=== PATIENT | female | born 1985 | race American Indian/Alaskan Native ===

== ENCOUNTER 2017-03-14 14:07 | Emergency (ER) | payer MEDICAID ==
[2017-03-14 14:50] LABS: Basophils % (Auto) 0.3 % (0.0-1.8); Eosinophils % (Auto) 1.5 % (0.0-4.3); Hematocrit 34.8 % (30.3-42.9); Hemoglobin 11.4 gm/dl (10.1-14.3); Mean Corpuscular HGB Conc 33 % (30-34); Mean Corpuscular Hemoglobin 26 pg (28-32); Mean Corpuscular Volume 81 fl (79-97); Platelet Count 321 K/mm3 (140-440); Red Cell Distribution Width 14.4 % (13.2-15.2); White Blood Count 9.7 K/mm3 (4.5-11.0)
[2017-03-14 15:11] LABS: Anion Gap 16 mmol/L; BUN/Creatinine Ratio 13; Blood Urea Nitrogen 8 mg/dL (7-17); Calcium 8.8 mg/dL (8.4-10.2); Carbon Dioxide 24 mmol/L (22-30); Chloride 100.8 mmol/L (98-107); Glucose 93 mg/dL (65-100); Potassium 3.4 mmol/L (3.6-5.0); Sodium 137 mmol/L (137-145)
--- NOTE | 2017-03-14 20:43 | Emergency Department Report ---
ED Chest Pain HPI - General Chief Complaint: Chest Pain Stated Complaint: CHEST AND BACK PAIN Time Seen by Provider: 03/14/17 20:13 Source: patient Mode of arrival: Ambulatory Limitations: No Limitations - History of Present Illness Initial Comments: This is a 31-year-old [place] female presents to the emergency department, driving himself in to be seen, with complaint of some midsternal chest pain that has been going on since about 8 AM this morning. It is associated with some shortness of breath and some nausea with one episode of vomiting this morning. She has not taken anything for her symptoms prior presentation. There is no obvious aggravating or alleviating factors. She does not have a primary care physician. She denies any tobacco, illicit drug or alcohol use or abuse. She denies any past medical history. No recent travel, immobility, or sick contacts at home. She denies any known early cardiac disease or events within her nuclear family. Severity scale (0 -10): 7 - Related Data Allergies Allergy/AdvReac Type Severity Reaction Status Date / Time No Known Allergies Allergy Unverified 03/14/17 14:14 Heart Score - HEART Score History: Slightly suspicious EKG: Normal Age: < 45 Risk factors: No known risk factors Troponin: < normal limit HEART Score: 0 - Critical Actions Critical Actions: 0-3 pts:0.9-1.7%risk of adverse cardiac event.Candidate for discharge ED Review of Systems ROS: Stated complaint: CHEST AND BACK PAIN Other details as noted in HPI Comment: All other systems reviewed and negative Constitutional: denies: chills, fever Eyes: denies: eye pain, eye discharge, vision change ENT: denies: ear pain, throat pain Respiratory: shortness of breath. denies: cough Cardiovascular: chest pain. denies: palpitations Gastrointestinal: nausea, vomiting. denies: abdominal pain Genitourinary: denies: urgency, dysuria, discharge Musculoskeletal: denies: back pain, joint swelling, arthralgia Skin: denies: rash, lesions Neurological: denies: headache, weakness, paresthesias ED Past Medical Hx - Social History Smoking Status: Never Smoker Substance Use Type: None ED Physical Exam - General Limitations: No Limitations - Other Other exam information: GENERAL: The patient is well-developed well-nourished. HENT: Normocephalic. Atraumatic. Patient has moist mucous membranes. EYES: Extraocular motions are intact. Pupils equal reactive to light bilaterally. NECK: Supple. Trachea is midline. CHEST/LUNGS: Clear to auscultation. There is no respiratory distress noted. There is some reproducible chest pain to palpation of the chest wall. No crepitus or deformity. HEART/CARDIOVASCULAR: Regular. There is no tachycardia. There is no murmur. ABDOMEN: Abdomen is soft, nontender. Patient has normal bowel sounds. There is no abdominal distention. SKIN: Skin is warm and dry. NEURO: The patient is awake, alert, and oriented. The patient is cooperative. The patient has no focal neurologic deficits. The patient has normal speech. MUSCULOSKELETAL: There is no tenderness or deformity. There is no limitation range of motion. There is no evidence of acute injury. ED Course Vital Signs 03/14/17 03/14/17 03/14/17 14:15 17:55 19:54 Temperature 98.4 F 98.8 F Pulse Rate 86 90 76 Respiratory 18 18 14 Rate Blood Pressure 120/76 116/73 Blood Pressure 111/72 [Right] O2 Sat by Pulse 100 100 100 Oximetry 03/14/17 03/14/17 20:00 20:30 Temperature Pulse Rate 75 80 Respiratory 15 13 Rate Blood Pressure 111/69 117/68 Blood Pressure [Right] O2 Sat by Pulse 100 100 Oximetry CLARENCE score - Clarence Score Age > 65: (0) No Aspirin use within the Past 7 Days: (0) No 3 or more CAD Risk Factors: (0) No 2 or more Angina events in past 24 hrs: (0) No Known CAD with more than 50% Stenosis: (0) No Elevated Cardiac Markers: (0) No ST Deviation Greater than 0.5mm: (0) No CLARENCE Score: 0 ED Medical Decision Making - Lab Data Result diagrams: 03/14/17 14:39 03/14/17 14:39 - EKG Data -: EKG Interpreted by Tn EKG shows normal: sinus rhythm, axis, intervals, QRS complexes, ST-T waves Rate: normal - EKG Data When compared to previous EKG there are: previous EKG unavailable Interpretation: normal EKG - Radiology Data Radiology results: image reviewed interpreted by me: Chest x-ray does not show any acute process. There are no pleural effusions, obvious pneumonia and there is no pneumothorax. - Medical Decision Making 31-year-old female presents with some midsternal chest pain that started earlier today associated with some shortness of breath and one episode of vomiting earlier. EKG is normal without ST elevation LA, ischemia or dysrhythmia. Labs have been unremarkable including negative troponins 3 and a negative d-dimer. Chest x-ray does not show any pleural effusions, pneumonia, pneumothorax or any acute process. She is low on the Heart score criteria and has a CLARENCE score of 0. On physical exam the Heart and lung sounds are normal auscultation. It appears that I am able to reproduce some of her chest discomfort to palpation. Vital signs stable throughout her ED course. For all these reasons the patient appears to be safe for discharge home and has been given referrals for both primary care and cardiology. She will return to the ER with any worsening of her symptoms or any acute distress. - Differential Diagnosis LA, PE, Costochondritis, GERD, Pneumonia Critical Care Time: No Critical care attestation.: If time is entered above; I have spent that time in minutes in the direct care of this critically ill patient, excluding procedure time. ED Disposition Clinical Impression: Costochondritis Chest pain Qualifiers: Chest pain type: unspecified Qualified Code(s): R07.9 - Chest pain, unspecified Disposition: DC-01 TO HOME OR SELFCARE Is pt being admited?: No Condition: Stable Instructions: Chest Pain (ED), Costochondritis (ED) Additional Instructions: Please follow up with a primary care physician in the next few days. I have given you a referral for a local heel attacher wood, Dr. Lawrence, in case she would like to follow up regarding her chest discomfort. Return to the emergency Department with any worsening of your symptoms or any acute distress. Referrals: PRIMARY MD MAXIMUS [Primary Care Provider] - 3-5 Days CHERELLE ALVAREZ MD [Staff Physician] - 3-5 Days WILIAM LAWRENCE MD [Staff Physician] - 3-5 Days Time of Disposition: 21:42
[2017-03-14 20:57] VITALS: BP 117/68
[2017-03-14] MEDS ORDERED: BABY ASPIRIN PO ONE (21:33)
--- NOTE | 2017-03-14 22:24 | XRay Report ---
FINAL REPORT EXAM: XR CHEST 1V AP HISTORY: CP TECHNIQUE: upright single view chest PRIORS: None. FINDINGS: Cardiac and mediastinal contours are unremarkable. No focal pulmonary infiltrate is identified. No pleural fluid collection seen. Pulmonary vasculature is unremarkable. IMPRESSION: Negative single-view chest
== END 2017-03-14 22:00 | disposition home or self-care (01) ==
LOC: ED 14:07
DX: M94.0 Chondrocostal junction syndrome [Tietze] (principal)
CPT/HCPCS: 36415; 71010; 80048; 84484; 84703; 85025; 85379; 93005; 93010; 99284